=== PATIENT | male | born 1995 | race Two or more races ===

== ENCOUNTER 2016-10-15 19:01 | Emergency (ER) | payer SELFPAY ==
[~2016-10-15] VITALS: Ht 170.2 cm; Wt 51.7 kg
[2016-10-15 19:05] VITALS: BP 112/56
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
== END 2016-10-15 20:22 | disposition home or self-care (01) ==
LOC: ER 19:01
DX: M54.5 Low back pain (principal); V49.59XA Passenger injured in collision with other motor vehicles in traffic accident, initial encounter; Y93.89 Activity, other specified; Y99.8 Other external cause status; Y92.481 Parking lot as the place of occurrence of the external cause
CPT/HCPCS: 72050; 72110; 99284